=== PATIENT | female | born 1990 | race Caucasian/White ===

== ENCOUNTER 2017-11-01 21:10 | Emergency (ER) | payer OTHER ==
[2017-11-01 23:13] LABS: Urine Blood NEGATIVE (NEG); Urine Glucose NEGATIVE (NEG); Urine Protein NEGATIVE (NEG); Urine pH 7.5 (5.0-7.0)
[2017-11-01 23:21] LABS: Absolute Lymphocytes (CBC) 1.2 K/uL (0.7-4.9); Absolute Monocytes 0.5 K/uL (0.1-1.3); Absolute Neutrophil 4.9 K/uL (1.8-8.0); Basophils % 0.5 % (0-1.3); Eosinophils % 0.8 % (0-4.4); Hematocrit 33.1 % (36.0-45.0); Lymphocytes % 18.4 % (15.3-44.8); MCH 29.7 pg (27.0-35.0); MCV 86.3 fL (80-100); MPV 8.4 fL (7.6-11.3); Monocytes % 7.7 % (3.3-12.3); RBC Red Blood Cell Count 3.84 M/uL (3.86-4.86)
[2017-11-01 23:23] LABS: BUN Blood Urea Nitrogen 14 mg/dL (6-20); Bicarbonate 26 mEq/L (21-31); Glucose Level 112 mg/dL (65-120); Potassium 3.5 mEq/L (3.6-5.0); Sodium Level 132 mEq/L (135-145)
[2017-11-01 23:26] LABS: Urine Bacteria <20 /HPF (<20); Urine Culture Reflex Order NOT NEEDED; Urine RBC NONE SEEN /HPF (NONE SEEN)
[2017-11-02] MEDS ORDERED: ONDANSETRON 4 MG (ODT) TAB ONE (00:21)
--- NOTE | 2017-11-02 00:57 | EDPHYS ---
Physician Documentation [facility] Name: William Umaña Age: 27 yrs Sex: Female : 1990 Arrival Date: 11/01/2017 Time: 21:14 Bed 16 Private MD: ED Physician J Luis Birch HPI: 11/01 23:49 This 27 yrs old Female presents to ER via Ambulatory with complaints of Legs snw feel heavy, Abdominal Cramping. 23:49 Onset: The symptoms/episode began/occurred suddenly. Associated signs and symptoms: snw Pertinent positives: nausea, heavy feeling in legs . Modifying factors: The patient symptoms are alleviated by rest. not to the extent it happened today. Neurology as noted. 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 - Social history:: Smoking status: Patient uses tobacco products, denies chronic smoking, but will smoke occasionally. ROS: 23:46 Eyes: Negative for injury, pain, redness, and discharge, ENT: Negative for injury, snw pain, and discharge, Neck: Negative for injury, pain, and swelling, Cardiovascular: Negative for chest pain, palpitations, and edema, Respiratory: Negative for shortness of breath, cough, wheezing, and pleuritic chest pain. 23:46 : Negative for injury, bleeding, discharge, and swelling, Skin: Negative for injury, rash, and discoloration, Neuro: Negative for headache, weakness, numbness, tingling, and seizure. 23:46 Constitutional: Positive for body aches, malaise. 23:46 Abdomen/GI: Positive for nausea, abdominal distension. 23:46 Back: Positive for pt took Diclofenac today at 1500 for the first time. Pt states she was given this per her Neurologist for back pain, paresthesias until they get a diagnosis. 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 She then cycled 40 miles. After cycling her legs felt heavier than normal and she felt nauseated and bloated.. 23:46 MS/extremity: Positive for heaviness. Exam: 23:46 Constitutional: This is a well developed, well nourished patient who is awake, alert, snw and in no acute distress. Head/Face: Normocephalic, atraumatic. Eyes: Pupils equal round and reactive to light, extra-ocular motions intact. Lids and lashes normal. Conjunctiva and sclera are non-icteric and not injected. Cornea within normal limits. Periorbital areas with no swelling, redness, or edema. ENT: Nares patent. No nasal discharge, no septal abnormalities noted. Tympanic membranes are normal and external auditory canals are clear. Oropharynx with no redness, swelling, or masses, exudates, or evidence of obstruction, uvula midline. Mucous membranes moist. Neck: Trachea midline, no thyromegaly or masses palpated, and no cervical lymphadenopathy. Supple, full range of motion without nuchal rigidity, or vertebral point tenderness. No Meningismus. Chest/axilla: Normal chest wall appearance and motion. Nontender with no deformity. No lesions are appreciated. Cardiovascular: Regular rate and rhythm with a normal S1 and S2. No gallops, murmurs, or rubs. Normal PMI, no JVD. No pulse deficits. Respiratory: Lungs have equal breath sounds bilaterally, clear to auscultation and percussion. No rales, rhonchi or wheezes noted. No increased work of breathing, no retractions or nasal flaring. Abdomen/GI: Soft, non-tender, with normal bowel sounds. No distension or tympany. No guarding or rebound. No evidence of tenderness throughout. Back: No spinal tenderness. No costovertebral tenderness. Full range of motion. Skin: Warm, dry with normal turgor. Normal color with no rashes, no lesions, and no evidence of cellulitis. MS/ Extremity: Pulses equal, no cyanosis. Neurovascular intact. Full, normal range of motion. Neuro: Awake and alert, GCS 15, oriented to person, place, time, and situation. Cranial nerves II-XII grossly intact. Motor strength 5/5 in all extremities. Sensory grossly intact. Cerebellar exam normal. Normal gait. Vital Signs: 21:30 BP 122 / 75 RA Sitting; Pulse 78; Resp 16; Temp 98.2(TE); Pulse Ox 100% on R/A; Weight lp1 71.67 kg; Height 5 ft. 8 in. (172.72 cm); Pain 0/10; 22:38 BP 122 / 76; Pulse 70; Resp 18; Pulse Ox 100% ; cb2 11/02 00:00 BP 120 / 77; Pulse 72; Resp 16; Pulse Ox 99% on R/A; Pain 0/10; aa1 01:22 BP 121 / 74; Pulse 61; Resp 16; Pulse Ox 100% on R/A; Pain 0/10; aa1 11/01 21:30 Body Mass Index 24.02 (71.67 kg, 172.72 cm) lp1 MDM: 11/01 22:39 Patient medically screened. snw 11/02 00:58 Data reviewed: vital signs, nurses notes. Data interpreted: Pulse oximetry: on room air snw is 99 %. Interpretation: normal. Counseling: I had a detailed discussion with the patient and/or guardian regarding: the historical points, exam findings, and any diagnostic results supporting the discharge/admit diagnosis, lab results, the need for outpatient follow up, to return to the emergency department if symptoms worsen or persist or if there are any questions or concerns that arise at home. Special discussion: Based on the history and exam findings, there is no indication for further emergent testing or inpatient evaluation. I discussed with the patient/guardian the need to see the neurologist for further evaluation of the symptoms. I discussed with the patient/guardian the need to see the primary care provider for further evaluation of the symptoms. 11/01 22:38 Order name: CBC with Diff w 11/01 22:38 Order name: Chem 7 w 11/01 22:39 Order name: Urine Microscopic Only w 11/01 23:04 Order name: Urine Dipstick--Ancillary (enter results) em1 11/01 23:04 Order name: Urine --Ancillary (enter results) em1 11/01 23:13 Order name: Urine --Ancillary; Complete Time: 23:16 EDMS 11/01 22:39 Order name: Urine Test (obtain specimen); Complete Time: 22:52 snw 11/01 22:39 Order name: Urine Dipstick-Ancillary (obtain specimen); Complete Time: 22:52 snw 11/01 23:13 Order name: Urine Dipstick-Ancillary; Complete Time: 23:16 EDMS 11/01 23:23 Order name: Basic Metabolic Panel; Complete Time: :32 EDMT 11/01 23:27 Order name: Urine Microscopic Only; Complete Time: : [facility] 11/01 23:30 Order name: CBC with Automated Diff; Complete Time: : [facility] 11/01 23:42 Order name: PO challenge; Complete Time: 00:15 snw Administered Medications: 00:16 Not Given (Patient Refused): Zofran 4 mg PO once aa1 Disposition: 11/02/17 00:56 Discharged to Home. Impression: Paresthesia of skin, Dehydration. - Condition is Stable. - Discharge Instructions: Dehydration, Adult, Paresthesia, Rehydration, Adult. - Prescriptions for Zofran 4 mg Oral Tablet - take 1 tablet by ORAL route every 12 hours As needed; 20 tablet. - Work release form, Medication Reconciliation Form, Thank You Letter, Antibiotic Education, Prescription Opioid Use form. - Follow up: Private Physician; When: 1 - 2 days; Reason: Recheck today's complaints, Continuance of care, Re-evaluation by your physician. Follow up: Emergency Department; When: As needed; Reason: Worsening of condition. Addendum: 11/04/2017 07:05 Co-signature as Attending Physician, J Luis Birch MD I agree with the assessment and w a plan of care. Signatures: Dispatcher [employer] Kaila Starks, RN RN aa1 Sarah Garcia, ADVERTISING CONSULTANT-C ADVERTISING CONSULTANT-Csnw Izabella Singh RN RN lp1 J Luis Birch MD MD hi
--- NOTE | 2017-11-02 00:57 | ER ---
Nurse's Notes [facility] Name: William Umaña Age: 27 yrs Sex: Female : 1990 Arrival Date: 11/01/2017 Time: 21:14 Bed 16 Private MD: Diagnosis: Paresthesia of skin;Dehydration Presentation: 11/01 21:28 Presenting complaint: Patient states: Took a Diclofenac 50mg tablet about 1400 today lp1 prior to cycling, first time taking medication; States feeling numbness to back, legs feeling heavy; Now feeling tingling in fingers and heavy legs, lightheaded, nausea. Transition of care: patient was not received from another setting of care. Onset of symptoms was November 01, 2017 at 14:00. Care prior to arrival: None. 21:28 Method Of Arrival: Ambulatory lp1 21:28 Acuity: SOLA 4 lp1 [facility]: 21:30 LMP 11/01/2017 lp1 Historical: - Allergies: 21:30 Sulfa (Sulfonamide Antibiotics); lp1 - Home Meds: 21:30 None [Active]; lp1 - PMHx: 21:30 borederline thyroid problem; lp1 - PSHx: 21:30 None; lp1 - Immunization history:: Adult Immunizations up to date. - Social history:: Smoking status: Patient uses tobacco products, denies chronic smoking, but will smoke occasionally. Screenin:34 Abuse screen: Denies threats or abuse. Denies injuries from another. Nutritional lp1 screening: No deficits noted. Tuberculosis screening: No symptoms or risk factors identified. Fall Risk None identified. Assessment: 22:40 General: Appears in no apparent distress. comfortable, Behavior is calm, cooperative, aa1 appropriate for age. Pain: Denies pain. Neuro: Level of Consciousness is awake, alert, obeys commands, Oriented to person, place, time, situation, Moves all extremities. Full function Gait is steady, Speech is normal, Facial symmetry appears normal, Pupils are PERRLA, Reports dizziness. Cardiovascular: Denies chest pain, palpitations, shortness of breath, Heart tones S1 S2 present Rhythm is regular. Respiratory: Airway is patent Respiratory effort is even, unlabored, Respiratory pattern is regular, symmetrical. GI: Abdomen is non-distended, Bowel sounds present X 4 quads. Abd is soft and non tender X 4 quads. Reports nausea. : No signs and/or symptoms were reported regarding the genitourinary system. EENT: No signs and/or symptoms were reported regarding the EENT system. Derm: Skin is intact, is healthy with good turgor, Skin is pink, warm \T\ dry. Musculoskeletal: Circulation, motion, and sensation intact. Capillary refill < 3 seconds, Range of motion: intact in all extremities. 11/02 00:10 Reassessment: Patient appears in no apparent distress at this time. Patient is alert, aa1 oriented x 3, equal unlabored respirations, skin warm/dry/pink. Pt drinking water, will d/c if able to tolerate PO intake Patient states feeling better. 00:35 Reassessment: Pt tolerated PO fluids without vomiting. aa1 01:22 Reassessment: Patient appears in no apparent distress at this time. Patient is alert, aa1 oriented x 3, equal unlabored respirations, skin warm/dry/pink. Discussed d/c \T\ f/u instructions with pt; denies questions or concerns at this time Patient denies pain at this time. Patient states feeling better. Vital Signs: 11/01 21:30 BP 122 / 75 RA Sitting; Pulse 78; Resp 16; Temp 98.2(TE); Pulse Ox 100% on R/A; Weight lp1 71.67 kg; Height 5 ft. 8 in. (172.72 cm); Pain 0/10; 22:38 BP 122 / 76; Pulse 70; Resp 18; Pulse Ox 100% ; cb2 11/02 00:00 BP 120 / 77; Pulse 72; Resp 16; Pulse Ox 99% on R/A; Pain 0/10; aa1 01:22 BP 121 / 74; Pulse 61; Resp 16; Pulse Ox 100% on R/A; Pain 0/10; aa1 11/01 21:30 Body Mass Index 24.02 (71.67 kg, 172.72 cm) lp1 ED Course: 11/01 21:14 Patient arrived in ED. do 21:30 Triage completed. lp1 21:30 Arm band placed on. lp1 21:32 Sarah Garcia FNP-C [facility]. snw 21:32 J Luis Birch MD is Attending Physician. snw 22:40 Kaila Bermeo RN is Primary Nurse. aa1 22:40 Patient has correct armband on for positive identification. Bed in low position. Call aa1 light in reach. Pulse ox on. NIBP on. Warm blanket given. 23:07 Initial lab(s) drawn, by me, sent to lab. Inserted saline lock: 20 gauge in left cb2 antecubital area, using aseptic technique. Blood collected. 11/02 01:22 No provider procedures requiring assistance completed. IV discontinued, intact, aa1 bleeding controlled, No redness/swelling at site. Pressure dressing applied. Administered Medications: 00:16 Not Given (Patient Refused): Zofran 4 mg PO once aa1 Outcome: 00:56 Discharge ordered by . snjan 01:22 Discharged to home ambulatory. aa1 01:22 Condition: good 01:22 Discharge instructions given to patient, Instructed on discharge instructions, follow up and referral plans. medication usage, Demonstrated understanding of instructions, follow-up care, medications, Prescriptions given X 1. 01:24 Patient left the ED. aa1 Signatures: Kaila Bermeo, RN RN aa1 Sarah Garcia, PAN WASHER HAND-C PAN WASHER HAND-Csnw Izabella Singh, LITA RN lp1 Kierra Salinas [facility]
== END 2017-11-02 01:24 | disposition home or self-care (01) ==
LOC: ER 21:10
DX: E86.0 Dehydration (principal); Z72.0 Tobacco use; Z88.2 Allergy status to sulfonamides
CPT/HCPCS: 36415; 80048; 81003; 81015; 81025; 85025; 99284

== ENCOUNTER 2017-12-08 04:50 | Emergency (ER) | payer OTHER ==
--- OUTSIDE RECORDS SUMMARY | 2017-12-08 04:53 | XMS REPORT | Clinical Summary ---
:1990 Author Organization [employer] [facility] [employer] Address [address] [place] [address] Care Team Providers Name Role Phone Asked, No Pcp Primary Care Provider Unavailable Allergies Active Allergy Reactions Severity Noted Date Comments Sulfasalazine Hives 07/15/2017 Current Medications Prescription Sig. Disp. Refills Start Date End Date Status omeprazole (PriLOSEC) Take 1 capsule 14 capsule 0 11/21/2017 12/05/2017 40 MG capsule (40 mg total) by mouth daily for 14 days. Active Problems Not on file Encounters Date Type Specialty Care Team Description 11/21/2017 Emergency Emergency Medicine Francesco Garcia Epigastric pain ( Primary MD [facility]) 07/14/2017 Telephone Gastroenterology Mindy Gonzalez MA after 12/07/2016 Social History Tobacco Use Types Packs/Day Years Used Date Never Smoker Smokeless Tobacco: Never Used Sex Assigned at Date Recorded Not on file Last Filed Vital Signs Vital Sign Reading Time Taken Blood Pressure 114/60 11/21/2017 6:23 PM CDT Pulse 74 11/21/2017 6:23 PM CDT Temperature 36.8 C (98.3 F) 11/21/2017 2:39 PM CDT Respiratory Rate 16 11/21/2017 6:23 PM CDT Oxygen Saturation 100% 11/21/2017 6:23 PM CDT Inhaled Oxygen Concentration - - Weight - - Height 172.7 cm (5' 8") 11/21/2017 2:42 PM CDT Body Mass Index - - Plan of Treatment Health Maintenance Due Date Last Done Comments PAP SMEAR 2010 INFLUENZA VACCINE 03/11/2018 Results ECG 12 lead (11/21/2017 4:01 PM) Component Value Ref Range Ventricular rate 73 Atrial rate 73 ME interval 156 QRSD interval 84 QT interval 390 QTC interval 429 P axis 1 43 QRS axis 1 73 T wave axis 60 EKG impression Normal sinus rhythm-Normal ECG-No previous ECGs available- Specimen Performing Laboratory [address] [address] Lactic acid level, SEPSIS - Now and repeat 2x every 3 hours (11/21/2017 3:50 PM ) Component Value Ref Range Lactic acid 1.2 0.5 - 2.2 mmol/L Specimen Performing Laboratory Plasma specimen [facility] DEPARTMENT OF PATHOLOGY AND GENOMIC MEDICINE [address] [place] [id number] Estimated GFR (11/21/2017 3:50 PM) Component Value Ref Range GFR Non Af Amer >90 mL/min/1.73 m2 GFR Af Amer >90 mL/min/1.73 m2 Comment: Chronic kidney disease: <60 mL/min/1.73m2 Kidney failure: <15 mL/min/1.73m2 The estimated GFR is calculated from the IDMS-traceable Modification of Diet in Renal Disease Equation. The accuracy of the calculation is poor when the creatinine is normal. Calculated values >90 mL/min/1.73m2 are not reported. This equation has not been validated in children (<18 years), women, the elderly (>70 years), or ethnic groups other than Caucasians and Americans. Specimen Performing Laboratory Plasma specimen [facility] DEPARTMENT OF PATHOLOGY AND GENOMIC [address] [address] CBC with platelet and differential (11/21/2017 3:50 PM) Component Value Ref Range WBC 5.49 4.50 - 11.00 k/uL RBC 4.17 (L) 4.20 - 5.50 m/uL HGB 12.0 12.0 - 16.0 g/dL HCT 37.1 37.0 - 47.0 % MCV 89.0 82.0 - 100.0 fL MCH 28.8 27.0 - 34.0 pg MCHC 32.3 31.0 - 37.0 g/dL RDW - SD 41.0 37.0 - 55.0 fL MPV 10.0 8.8 - 13.2 fL Platelet count 371 150 - 400 k/uL Nucleated RBC 0.00 /100 WBC Neutrophils 77.5 (H) 39.0 - 69.0 % Lymphocytes 16.6 (L) 25.0 - 45.0 % Monocytes 4.9 0.0 - 10.0 % Eosinophils 0.4 0.0 - 5.0 % Basophils 0.4 0.0 - 1.0 % Immature granulocytes 0.2Comment: "Immature granulocytes" 0.0 - 1.0 % (promyelocytes, myelocytes, metamyelocytes) Specimen Performing Laboratory Blood [facility] PATHOLOGY AND [address] [address] Urine culture (11/21/2017 3:50 PM) Component Value Ref Range Urine culture SEE COMMENTComment: Bacteriuria screen negative. Specimen Performing Laboratory [facility] PATHOLOGY [address] [address] Lipase level (11/21/2017 3:50 PM) Component Value Ref Range Lipase 19 13 - 60 U/L Specimen Performing Laboratory Plasma specimen [facility] PATHOLOGY [address] [address] Amylase level (11/21/2017 3:50 PM) Component Value Ref Range Amylase 106 (H) 28 - 100 U/L Specimen Performing Laboratory Plasma specimen [facility] DEPARTMENT PATHOLOGY AND [address] [address] Comprehensive metabolic panel (11/21/2017 3:50 PM) Component Value Ref Range Sodium 142 135 - 148 mEq/L Potassium 4.6 3.5 - 5.0 mEq/L Chloride 104 98 - 112 mEq/L CO2 24 24 - 31 mEq/L Anion gap 14 7 - 15 mEq/L Comment: Starting from November , anion gap calculation no longer incorporates potassium. Please note the change. BUN 10 6 - 20 mg/dL Creatinine 0.6 0.5 - 0.9 mg/dL Glucose 97 65 - 99 mg/dL Calcium 9.5 8.3 - 10.2 mg/dL Protein 7.7 6.3 - 8.3 g/dL Comment: [place] 4.6-7.0 g/dL 1 week 4.4-7.6 g/dL 7 months-1year5.1-7.3 g/dL 1-2 years5.6-7.5 g/dL >3 years6.0-8.0 g/dL 18-150 6.3-8.3 g/dL Albumin 4.2 3.5 - 5.0 g/dL A/G ratio 1.2 0.7 - 3.8 Alkaline phosphatase 49 35 - 104 U/L AST 26 10 - 35 U/L ALT 14 5 - 50 U/L Total bilirubin 0.3 0.0 - 1.2 mg/dL Specimen Performing Laboratory Plasma specimen [facility] DEPARTMENT OF PATHOLOGY AND GENOMIC MEDICINE [address] [place] [id number] Urinalysis screen and microscopy, with reflex to culture (11/21/2017 3:45 PM) Component Value Ref Range Specimen site Clean catch Color, UA Colorless Appearance, UA Clear Specific gravity, UA 1.005 1.001 - 1.035 pH, UA 7.0 5.0 - 8.5 Protein, UA Negative Negative Glucose, UA Negative Negative Ketones, UA Negative Negative Bilirubin, UA Negative Negative Blood, UA Negative Negative Nitrite, UA Negative Negative Urobilinogen, UA <2.0 <2.0 Leukocyte esterase, UA Negative Negative WBC, UA None seen 0 - 4 /HPF RBC, UA <1 0 - 5 /HPF Bacteria, UA None seen None seen Yeast, UA None seen Yeast with pseudohyphae, UA None seen Specimen Performing Laboratory Urine [facility] DEPARTMENT OF PATHOLOGY AND GENOMIC MEDICINE [address] [place] [id number] hCG qualitative, urine screen (11/21/2017 3:45 PM) Component Value Ref Range hCG qualitative, urine NegativeComment: Sensitivity of HCG test: 25 mIU/mL Specimen Performing Laboratory Urine [facility] DEPARTMENT OF PATHOLOGY AND GENOMIC MEDICINE [address] [place] [id number] after 12/07/2016 Insurance Payer Benefit Plan / Group Subscriber ID Type Phone Address [employer] PPO OPEN CHOICE xxxxxxxxx PPO
[2017-12-08] MEDS ORDERED: NA CHLORIDE 0.9% 2,000 ML ONE (05:12)
[2017-12-08 05:42] LABS: Urine Blood TRACE (NEG); Urine Glucose NEGATIVE (NEG); Urine Protein NEGATIVE (NEG)
[2017-12-08 05:44] LABS: Absolute Lymphocytes (CBC) 1.6 K/uL (0.7-4.9); Absolute Monocytes 0.5 K/uL (0.1-1.3); Absolute Neutrophil 1.8 K/uL (1.8-8.0); Basophils % 0.9 % (0-1.3); Hematocrit 35.5 % (36.0-45.0); Lymphocytes % 40.6 % (15.3-44.8); MCH 28.5 pg (27.0-35.0); MCV 86.5 fL (80-100); MPV 9.1 fL (7.6-11.3)
[2017-12-08 05:55] LABS: Urine Bacteria <20 /HPF (<20); Urine Culture Reflex Order NOT NEEDED; Urine RBC <5 /HPF (NONE SEEN)
[2017-12-08 05:57] LABS: Bicarbonate 26 mEq/L (21-31); Glucose Level 99 mg/dL (65-120); Potassium 3.3 mEq/L (3.6-5.0); Sodium Level 138 mEq/L (135-145)
[2017-12-08 06:01] LABS: BUN Blood Urea Nitrogen 10 mg/dL (6-20); Creatine Phosphokinase 180 IU/L (22-269)
[2017-12-08] MEDS ORDERED: POTASSIUM CL SA 10 MEQ TAB PO ONE (06:20)
--- NOTE | 2017-12-08 06:31 | ER ---
Nurse's Notes [facility] Name: William Umaña Age: 27 yrs Sex: Female : 1990 Arrival Date: 12/08/2017 Time: 04:51 Bed 20 Private MD: Diagnosis: Chest pain, unspecified;Dehydration Presentation: 12/08 05:06 Presenting complaint: Patient states: she [place] yesterday and got dehydrated bb it took over 5 hours for her HR to get below 90, pt is having chest pain on the right side and felt like her pulse was fast. Transition of care: patient was not received from another setting of care. Onset of symptoms was December 08, 2017. Initial Sepsis Screen: Does the patient meet any 2 criteria? No. Patient's initial sepsis screen is negative. Does the patient have a suspected source of infection? No. Patient's initial sepsis screen is negative. Care prior to arrival: None. 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 - Social history:: Smoking status: Patient/guardian denies using tobacco, Patient uses alcohol, occasionally. Patient/guardian denies using street drugs. - Family history:: not pertinent. - Hospitalizations: : No recent hospitalization is reported. Screenin:14 Abuse screen: Denies threats or abuse. Nutritional screening: No deficits noted. ea Tuberculosis screening: No symptoms or risk factors identified. Fall Risk IV access (20 points). Assessment: 05:22 General: Appears in no apparent distress. Behavior is calm, cooperative, appropriate ea for age. Pain: Complains of pain in anterior aspect of left upper chest Pain does not radiate. Pain currently is 7 out of 10 on a pain scale. Quality of pain is described as aching, Pain began gradually. Neuro: Level of Consciousness is awake, alert, obeys commands, Oriented to person, place, time, situation. Cardiovascular: Patient's skin is warm and dry. Respiratory: Airway is patent Respiratory effort is even, unlabored, Respiratory pattern is regular, symmetrical. GI: No signs and/or symptoms were reported involving the gastrointestinal system. : No signs and/or symptoms were reported regarding the genitourinary system. EENT: No signs and/or symptoms were reported regarding the EENT system. Derm: Skin is pink, warm \T\ dry. 05:30 Reassessment: Pt taken to radiology. ea 06:23 Reassessment: Patient and/or family updated on plan of care and expected duration. Pain ea level reassessed. Patient is alert, oriented x 3, equal unlabored respirations, skin warm/dry/pink. 06:40 Reassessment: Patient and/or family updated on plan of care and expected duration. Pain ea level reassessed. Patient is alert, oriented x 3, equal unlabored respirations, skin warm/dry/pink. discharge instructions given to patient, verbalized the understanding of instruction. Awaiting on completion of IV fluids. Vital Signs: 05:09 BP 132 / 72; Pulse 101; Resp 16 S; Temp 98.7(O); Pulse Ox 100% on R/A; Weight 71.67 kg bb (R); Height 5 ft. 8 in. (172.72 cm) (R); Pain 7/10; 06:24 BP 100 / 55; Pulse 67; Resp 18; Pulse Ox 100% on R/A; ea 05:09 Body Mass Index 24.02 (71.67 kg, 172.72 cm) bb ED Course: 04:51 Patient arrived in ED. ds1 04:54 Houston Mays MD is Attending Physician. rn 04:58 Aria Rodríguez RN is Primary Nurse. ea 05:09 Triage completed. bb 05:09 Arm band placed on Patient placed in an exam room, on a stretcher, on quality assurance monitor final, bb on pulse oximetry. EKG completed in triage. Results shown to MD. Family accompanied patient. 05:13 Inserted saline lock: 20 gauge in right antecubital area, using aseptic technique. ak1 Blood collected. 05:15 Patient has correct armband on for positive identification. playground monitor on. Pulse ea ox on. NIBP on. 05:15 Patient maintains SpO2 saturation greater than 95% on room air. ea 05:34 Patient moved to radiology via wheelchair. kw 05:34 X-ray completed. Patient tolerated procedure well. kw 05:34 Patient moved back from radiology. kw 05:35 XRAY Chest Pa And Lat (2 Views) In Process Unspecified. EDMS 06:40 No provider procedures requiring assistance completed. ea 06:58 IV discontinued, intact, bleeding controlled, No redness/swelling at site. Pressure ea dressing applied. Administered Medications: 05:25 Drug: NS 0.9% 1000 ml Route: IV; Rate: 1000 ml; Site: right antecubital; ea 06:30 Follow up: Response: No adverse reaction; IV Status: Completed infusion ea 05:25 Drug: NS 0.9% 1000 ml Route: IV; Rate: 1000 ml; Site: right antecubital; ea 06:58 Follow up: Response: No adverse reaction; IV Status: Completed infusion ea 06:22 Drug: Potassium Chloride 40 mEq Route: PO; ea 06:58 Follow up: Response: No adverse reaction ea Outcome: 06:31 Discharge ordered by MD. rn 06:49 Discharge instructions given to patient, Instructed on discharge instructions, follow ea up and referral plans. Demonstrated understanding of instructions, follow-up care. 07:00 Discharged to home ambulatory, with family. ea 07:00 Condition: improved 07:14 Patient left the ED. ea Signatures: Dispatcher [employer] EDOR Womack, Chyna ds1 Mona Beasley RN RN bb Nieto, Roman, MD MD rn Whitley, Kimberlee kw Krenek, Amber, RN RN ak1 Aria Rodríguez RN RN ea Corrections: (The following items were deleted from the chart) 06:50 06:40 Reassessment: Patient and/or family updated on plan of care and expected ea duration. Pain level reassessed. Patient is alert, oriented x 3, equal unlabored respirations, skin warm/dry/pink. discharge instructions given to patient, verbalized the understanding of instruction. ea
--- NOTE | 2017-12-08 06:32 | EDPHYS ---
Physician Documentation [facility] Name: William Umaña Age: 27 yrs Sex: Female : 1990 Arrival Date: 12/08/2017 Time: 04:51 Bed 20 Private MD: ED Physician Houston Mays HPI: 12/08 05:17 This 27 yrs old Female presents to ER via Ambulatory with complaints of Chest rn Pain. 05:17 The patient or guardian reports chest pain that is located primarily in the anterior rn chest wall, right. The pain does not radiate. Associated signs and symptoms: Pertinent positives: palpitations. The chest pain is described as a heaviness. Duration: The patient or guardian reports multiple episodes, that are intermittent. Severity of pain: At its worst the pain was mild in the emergency department the pain is unchanged. The patient has not experienced similar symptoms in the past. Reports [place] that [place] yesterday, reports got dehydrated, HR went into 150s, went home and "crashed", feels better but feels palpitations, didn't drink too much water since race, feels generalized fatigue and muscle cramps. + right sided chest pain that feels heavy, non-radiating, no sob/cough, used to smoke, no trauma, worse with deep breath and palpation.. 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 - Social history:: Smoking status: Patient/guardian denies using tobacco, Patient uses alcohol, occasionally. Patient/guardian denies using street drugs. - Family history:: not pertinent. - Hospitalizations: : No recent hospitalization is reported. ROS: 05:17 Constitutional: Negative for fever, chills, and weight loss, Eyes: Negative for injury, rn pain, redness, and discharge, Neck: Negative for injury, pain, and swelling, Cardiovascular: Negative for edema Respiratory: Negative for shortness of breath, cough, wheezing Abdomen/GI: Negative for abdominal pain, nausea, vomiting, diarrhea, and constipation, Back: Negative for injury and pain, MS/Extremity: Negative for injury and deformity, Skin: Negative for injury, rash, and discoloration, Neuro: Negative for headache, seizure. Exam: 05:17 Constitutional: This is a well developed, well nourished patient who is awake, alert, rn and in no acute distress. Head/Face: Normocephalic, atraumatic. Eyes: Pupils equal round and reactive to light, extra-ocular motions intact. Lids and lashes normal. Conjunctiva and sclera are non-icteric and not injected. Cornea within normal limits. Periorbital areas with no swelling, redness, or edema. Neck: Trachea midline, no thyromegaly or masses palpated, and no cervical lymphadenopathy. Supple, full range of motion without nuchal rigidity, or vertebral point tenderness. No Meningismus. Chest/axilla: + reproducible right anterior chest wall tenderness with urticaria over chest wall Cardiovascular: Regular rate and rhythm with a normal S1 and S2. No gallops, murmurs, or rubs. Normal PMI, no JVD. No pulse deficits. Respiratory: Lungs have equal breath sounds bilaterally, clear to auscultation and percussion. No rales, rhonchi or wheezes noted. No increased work of breathing, no retractions or nasal flaring. Abdomen/GI: Soft, non-tender, with normal bowel sounds. No distension or tympany. No guarding or rebound. No evidence of tenderness throughout. Skin: Warm, dry, no evidence of cellulitis. MS/ Extremity: Pulses equal, no cyanosis. Neurovascular intact. Full, normal range of motion. Equal circumference. Neuro: Awake and alert, GCS 15, oriented to person, place, time, and situation. Cranial nerves II-XII grossly intact. Motor strength 5/5 in all extremities. Sensory grossly intact. Cerebellar exam normal. Normal gait. 05:27 ECG was reviewed by the Attending Physician. rn Vital Signs: 05:09 BP 132 / 72; Pulse 101; Resp 16 S; Temp 98.7(O); Pulse Ox 100% on R/A; Weight 71.67 kg bb (R); Height 5 ft. 8 in. (172.72 cm) (R); Pain 7/10; 06:24 BP 100 / 55; Pulse 67; Resp 18; Pulse Ox 100% on R/A; ea 05:09 Body Mass Index 24.02 (71.67 kg, 172.72 cm) bb MDM: 04:54 Patient medically screened. rn 06:30 Differential diagnosis: anxiety, chest wall pain, costochondritis, pleurisy, rn pneumothorax, pulmonary embolus. Data reviewed: vital signs, nurses notes, lab test result(s), EKG, radiologic studies, plain films, and as a result, I will discharge patient. Counseling: I had a detailed discussion with the patient and/or guardian regarding: the historical points, exam findings, and any diagnostic results supporting the discharge/admit diagnosis, lab results, radiology results, the need for outpatient follow up, to return to the emergency department if symptoms worsen or persist or if there are any questions or concerns that arise at home. Response to treatment: the patient's symptoms have markedly improved after treatment, patient is well hydrated. and as a result, I will discharge patient. Special discussion: I discussed with the patient/guardian in detail that at this point there is no indication for admission to the hospital. It is understood, however, that if the symptoms persist or worsen the patient needs to return immediately for re-evaluation. 12/08 05:07 Order name: CBC with Diff rn 12/08 05:07 Order name: Basic Metabolic Panel rn 12/08 05:07 Order name: Urine Microscopic Only; Complete Time: 06:02 rn 12/08 05:07 Order name: Troponin (emerg Dept Use Only); Complete Time: 06:14 rn 12/08 05:07 Order name: TSH rn 12/08 05:07 Order name: T4 Free rn 12/08 05:08 Order name: CBC with Automated Diff; Complete Time: 06:02 EDMS 12/08 05:08 Order name: XRAY Chest Pa And Lat (2 Views) rn 12/08 05:08 Order name: D-Dimer; Complete Time: 06:02 rn 12/08 05:30 Order name: Urine Dipstick--Ancillary (enter results); Complete Time: 05:48 rg2 12/08 05:30 Order name: Urine --Ancillary (enter results); Complete Time: 05:48 rg2 12/08 05:31 Order name: Creatine Phosphokinase EDMS 12/08 05:07 Order name: IV Start; Complete Time: 05:14 rn 12/08 05:07 Order name: Urine Test (obtain specimen); Complete Time: 05:25 rn 12/08 05:07 Order name: Urine Dipstick-Ancillary (obtain specimen); Complete Time: 05: rn 12/08 05:07 Order name: EKG; Complete Time: 05:08 rn 12/08 05:07 Order name: EKG - Nurse/Tech; Complete Time: 05:16 rn EC:27 Rate is 89 beats/min. Rhythm is regular. QRS [place] is Normal. ND interval is normal. QRS rn interval is normal. QT interval is normal. No Q waves. T waves are Normal. No ST changes noted. Clinical impression: Normal ECG. Interpreted by me. Administered Medications: 05:25 Drug: NS 0.9% 1000 ml Route: IV; Rate: 1000 ml; Site: right antecubital; ea 06:30 Follow up: Response: No adverse reaction; IV Status: Completed infusion ea 05:25 Drug: NS 0.9% 1000 ml Route: IV; Rate: 1000 ml; Site: right antecubital; ea 06:58 Follow up: Response: No adverse reaction; IV Status: Completed infusion ea 06:22 Drug: Potassium Chloride 40 mEq Route: PO; ea 06:58 Follow up: Response: No adverse reaction ea Disposition: 12/08/17 06:31 Discharged to Home. Impression: Chest pain, unspecified, Dehydration. - Condition is Stable. - Discharge Instructions: Nonspecific Chest Pain, Chest Wall Pain, Dehydration, Adult, Pain Without a Known Cause. - Medication Reconciliation Form, Thank You Letter, Antibiotic Education, Prescription Opioid Use form. - Follow up: Private Physician; When: As needed; Reason: Recheck today's complaints, Re-evaluation by your physician. - Problem is new. - Symptoms have improved. Signatures: Dispatcher [employer] EDMS Mona Beasley RN RN bb Nieto, Roman, MD MD rn Antunez, Elena, RN RN ea Corrections: (The following items were deleted from the chart) 05:31 05:15 CREATINE PHOSPHOKINASE+[id number].BRZ ordered. EDMS EDMS
[2017-12-08 06:36] LABS: Thyroid Stimulating Hormone 3.42 uIU/mL (0.34-5.60)
--- NOTE | 2017-12-08 07:14 | EKG ---
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
--- NOTE | 2017-12-08 09:32 | RAD REPORT ---
EXAM DESCRIPTION: RAD - Chest Pa And Lat (2 Views) - 12/08/2017 5:37 am CLINICAL HISTORY: Chest pain COMPARISON: March 2017 TECHNIQUE: PA and lateral views of the chest were obtained. FINDINGS: The lungs are clear. Lung markings are similar to comparison. Trachea is midline. Heart s ize is normal and central vasculature is within normal limits. No pleural effusion or pneumothorax s een. No acute bony finding noted. No aortic abnormality. IMPRESSION: No acute cardiopulmonary process.
== END 2017-12-08 07:14 | disposition home or self-care (01) ==
LOC: ER 04:50
DX: R07.9 Chest pain, unspecified (principal); E86.0 Dehydration; Z88.2 Allergy status to sulfonamides
CPT/HCPCS: 36415; 71046; 80048; 81003; 81015; 81025; 82550; 84439; 84443; 84484; 85025; 85379; 93005; 96360; 96361; 99285; J7030

== ENCOUNTER 2018-10-30 22:08 | Emergency (ER) | payer OTHER ==
--- OUTSIDE RECORDS SUMMARY | 2018-10-30 22:11 | XMS REPORT | Clinical Summary ---
:1990 Author Organization [facility] Address [address] [place] [address] Care Team Providers Name Role Phone Asked, No Pcp Primary Care Provider Unavailable Allergies Active Allergy Reactions Severity Noted Date Comments Sulfasalazine Hives 07/15/2017 Medications Medication Sig Dispensed Refills Start Date End Date Status omeprazole Take 1 capsule 14 capsule 0 11/21/2017 12/05/2017 (PriLOSEC) 40 MG (40 mg total) by capsule mouth daily for 14 days. Active Problems Not on file Encounters Date Type Specialty Care Team Description 11/21/2017 Emergency Emergency Medicine Francesco Garcia Epigastric pain ( Primary MD Lion Dx) after 10/29/2017 Social History Tobacco Use Types Packs/Day Years Used Date Never Smoker Smokeless Tobacco: Never Used Sex Assigned at Date Recorded Not on file Job Start Date Occupation Industry Not on file Not on file Not on file Travel History Travel Start Travel End No recent travel history available. Last Filed Vital Signs Vital Sign Reading [...] Health Maintenance Due Date Last Done Comments CERVICAL CANCER SCREENING 2010 INFLUENZA VACCINE 03/11/2018 Procedures Procedure Name Priority Date/Time Associated Comments Diagnosis ECG 12-LEAD STAT 11/21/2017 4:01 Results for this PM CDT procedure are in the results section. ZZESTIMATED GFR STAT 11/21/2017 3:50 Results for this PM CDT procedure are in the results section. LIPASE LEVEL STAT 11/21/2017 3:50 Results for this PM CDT procedure are in the results section. AMYLASE LEVEL STAT 11/21/2017 3:50 Results for this PM CDT procedure are in the results section. LACTIC ACID LEVEL, STAT 11/21/2017 3:50 Results for this SEPSIS - NOW AND PM CDT procedure are in REPEAT 2X EVERY 3 the results HOURS section. COMPREHENSIVE STAT 11/21/2017 3:50 Results for this METABOLIC PANEL PM CDT procedure are in the results section. HC COMPLETE BLD COUNT STAT 11/21/2017 3:50 Results for this W/AUTO DIFF PM CDT procedure are in the results section. URINE CULTURE STAT 11/21/2017 3:50 Results for this PM CDT procedure are in the results section. HCG QUALITATIVE, URINE STAT 11/21/2017 3:45 Results for this SCREEN PM CDT procedure are in the results section. URINALYSIS SCREEN AND STAT 11/21/2017 3:45 Results for this MICROSCOPY, WITH PM CDT procedure are in REFLEX TO CULTURE the results section. after 10/29/2017 Results ECG 12 lead (11/21/2017 4:01 PM CDT) Ventricular rate 73 [facility] Atrial rate 73 [facility] GA interval 156 [facility] QRSD interval 84 [facility] QT interval 390 [facility] QTC interval 429 [facility] P axis 1 43 [facility] QRS axis 1 73 [facility] T wave axis 60 [facility] EKG impression Normal sinus rhythm-Normal ECG-No previous [facility] MUSE ECGs available- Performing Organization Address City/[facility] Phone Number [facility] MUSE [address] [place] [address] Lactic acid level, SEPSIS - Now and repeat 2x every 3 hours (11/21/2017 3:50 PM CDT) Lactic acid 1.2 0.5 - 2.2 mmol/L [facility] DEPARTMENT OF PATHOLOGY AND GENOMIC MEDICINE Specimen Plasma specimen Performing Organization Address City/[facility] Phone Number [facility] DEPARTMENT OF PATHOLOGY AND [address] [place] [address] GENOMIC MEDICINE Estimated GFR (11/21/2017 3:50 PM CDT) GFR Non Af Amer >90 mL/min/1.73 m2 [facility] DEPARTMENT OF PATHOLOGY AND GENOMIC MEDICINE GFR Af Amer >90 mL/min/1.73 m2 [facility] DEPARTMENT OF Comment: PATHOLOGY AND GENOMIC Chronic kidney disease: <60 mL/min/1.73m2 MEDICINE Kidney failure: <15 mL/min/1.73m2 The estimated GFR is calculated from the IDMS-traceable Modification of Diet in Renal Disease Equation. The accuracy of the calculation is poor when the creatinine is normal. Calculated values >90 mL/min/1.73m2 are not reported. This equation has not been validated in children (<18 years), women, the elderly (>70 years), or ethnic groups other than Caucasians and Americans. Specimen Plasma specimen Performing Organization Address City/State/Zipcode Phone Number [facility] DEPARTMENT OF PATHOLOGY AND [address] [place] [address] [facility] CBC with platelet and differential (11/21/2017 3:50 PM CDT) WBC 5.49 4.50 - 11.00 k/uL [facility] DEPARTMENT OF PATHOLOGY AND GENOMIC MEDICINE RBC 4.17 (L) 4.20 - 5.50 m/uL [facility] DEPARTMENT OF PATHOLOGY AND GENOMIC MEDICINE HGB 12.0 12.0 - 16.0 g/dL [facility] DEPARTMENT OF PATHOLOGY AND GENOMIC MEDICINE HCT 37.1 37.0 - 47.0 % [facility] DEPARTMENT OF PATHOLOGY AND GENOMIC MEDICINE MCV 89.0 82.0 - 100.0 fL [facility] DEPARTMENT OF PATHOLOGY AND GENOMIC MEDICINE MCH 28.8 27.0 - 34.0 pg [facility] DEPARTMENT OF PATHOLOGY AND GENOMIC MEDICINE MCHC 32.3 31.0 - 37.0 g/dL [facility] DEPARTMENT OF PATHOLOGY AND GENOMIC MEDICINE RDW - SD 41.0 37.0 - 55.0 fL [facility] DEPARTMENT OF PATHOLOGY AND GENOMIC MEDICINE MPV 10.0 8.8 - 13.2 fL [facility] DEPARTMENT OF PATHOLOGY AND GENOMIC MEDICINE Platelet count 371 150 - 400 k/uL [facility] DEPARTMENT OF PATHOLOGY AND GENOMIC MEDICINE Nucleated RBC 0.00 /100 WBC [facility] DEPARTMENT OF PATHOLOGY AND GENOMIC MEDICINE Neutrophils 77.5 (H) 39.0 - 69.0 % [facility] DEPARTMENT OF PATHOLOGY AND GENOMIC MEDICINE Lymphocytes 16.6 (L) 25.0 - 45.0 % [facility] DEPARTMENT OF PATHOLOGY AND GENOMIC MEDICINE Monocytes 4.9 0.0 - 10.0 % [facility] DEPARTMENT OF PATHOLOGY AND GENOMIC MEDICINE Eosinophils 0.4 0.0 - 5.0 % [facility] DEPARTMENT OF PATHOLOGY AND GENOMIC MEDICINE Basophils 0.4 0.0 - 1.0 % [facility] DEPARTMENT OF PATHOLOGY AND GENOMIC MEDICINE Immature granulocytes 0.2Comment: 0.0 - 1.0 % [facility] DEPARTMENT OF "Immature PATHOLOGY AND GENOMIC granulocytes" MEDICINE (promyelocytes, myelocytes, metamyelocytes) Specimen Blood Performing Organization Address City/[facility] Phone Number [facility] DEPARTMENT OF PATHOLOGY AND [address] [place] [address] GENOMIC MEDICINE Urine culture (11/21/2017 3:50 PM CDT) Urine culture SEE COMMENTComment: Bacteriuria [facility] DEPARTMENT OF PATHOLOGY screen negative. AND GENOMIC MEDICINE Performing Organization Address [facility] Phone Number [facility] DEPARTMENT OF PATHOLOGY AND [address] [place] [address] GENOMIC MEDICINE Lipase level (11/21/2017 3:50 PM CDT) Lipase 19 13 - 60 U/L [facility] DEPARTMENT OF PATHOLOGY AND GENOMIC MEDICINE Specimen Plasma specimen Performing Organization Address [facility] Phone Number [facility] DEPARTMENT OF PATHOLOGY AND [address] [place] [address] Amylase level (11/21/2017 3:50 PM CDT) Amylase 106 (H) 28 - 100 U/L [facility] DEPARTMENT OF PATHOLOGY AND GENOMIC MEDICINE Specimen Plasma specimen Performing Organization Address [facility] Phone Number [facility] DEPARTMENT OF PATHOLOGY AND [address] [place] [address] Comprehensive metabolic panel (11/21/2017 3:50 PM CDT) Sodium 142 135 - 148 mEq/L [facility] DEPARTMENT OF PATHOLOGY AND GENOMIC MEDICINE Potassium 4.6 3.5 - 5.0 mEq/L [facility] DEPARTMENT OF PATHOLOGY AND GENOMIC MEDICINE Chloride 104 98 - 112 mEq/L [facility] DEPARTMENT OF PATHOLOGY AND GENOMIC MEDICINE CO2 24 24 - 31 mEq/L [facility] DEPARTMENT OF PATHOLOGY AND GENOMIC MEDICINE Anion gap 14 7 - 15 mEq/L [facility] DEPARTMENT OF Comment: PATHOLOGY AND GENOMIC Starting from November , anion gap calculation MEDICINE no longer incorporates potassium. Please note the change. BUN 10 6 - 20 mg/dL [facility] DEPARTMENT OF PATHOLOGY AND GENOMIC MEDICINE Creatinine 0.6 0.5 - 0.9 mg/dL [facility] DEPARTMENT OF PATHOLOGY AND GENOMIC MEDICINE Glucose 97 65 - 99 mg/dL [facility] DEPARTMENT OF PATHOLOGY AND GENOMIC MEDICINE Calcium 9.5 8.3 - 10.2 mg/dL [facility] DEPARTMENT OF PATHOLOGY AND GENOMIC MEDICINE Protein 7.7 6.3 - 8.3 g/dL [facility] DEPARTMENT OF Comment: PATHOLOGY AND GENOMIC [place] 4.6-7.0 g/dL MEDICINE 1 week 4.4-7.6 g/dL 7 months-1year5.1-7.3 g/dL 1-2 years5.6-7.5 g/dL >3 years6.0-8.0 g/dL 18-150 6.3-8.3 g/dL Albumin 4.2 3.5 - 5.0 g/dL [facility] DEPARTMENT OF PATHOLOGY AND GENOMIC MEDICINE A/G ratio 1.2 0.7 - 3.8 [facility] DEPARTMENT OF PATHOLOGY AND GENOMIC MEDICINE Alkaline phosphatase 49 35 - 104 U/L [facility] DEPARTMENT OF PATHOLOGY AND GENOMIC MEDICINE AST 26 10 - 35 U/L [facility] DEPARTMENT OF PATHOLOGY AND GENOMIC MEDICINE ALT 14 5 - 50 U/L [facility] DEPARTMENT OF PATHOLOGY AND GENOMIC MEDICINE Total bilirubin 0.3 0.0 - 1.2 mg/dL [facility] DEPARTMENT OF PATHOLOGY AND GENOMIC MEDICINE Specimen Plasma specimen Performing Organization Address City/State/[facility] Phone Number [facility] DEPARTMENT OF PATHOLOGY AND [address] [place] [id number] [facility] Urinalysis screen and microscopy, with reflex to culture (11/21/2017 3:45 PM CDT) Specimen site Clean catch [facility] DEPARTMENT OF PATHOLOGY AND GENOMIC MEDICINE Color, UA Colorless [facility] DEPARTMENT OF PATHOLOGY AND GENOMIC MEDICINE Appearance, UA Clear [facility] DEPARTMENT OF PATHOLOGY AND GENOMIC MEDICINE Specific gravity, UA 1.005 1.001 - 1.035 [facility] DEPARTMENT OF PATHOLOGY AND GENOMIC MEDICINE pH, UA 7.0 5.0 - 8.5 [facility] DEPARTMENT OF PATHOLOGY AND GENOMIC MEDICINE Protein, UA Negative Negative [facility] DEPARTMENT OF PATHOLOGY AND GENOMIC MEDICINE Glucose, UA Negative Negative [facility] DEPARTMENT OF PATHOLOGY AND GENOMIC MEDICINE Ketones, UA Negative Negative [facility] DEPARTMENT OF PATHOLOGY AND GENOMIC MEDICINE Bilirubin, UA Negative Negative [facility] DEPARTMENT OF PATHOLOGY AND GENOMIC MEDICINE Blood, UA Negative Negative [facility] DEPARTMENT OF PATHOLOGY AND GENOMIC MEDICINE Nitrite, UA Negative Negative [facility] DEPARTMENT OF PATHOLOGY AND GENOMIC MEDICINE Urobilinogen, UA <2.0 <2.0 [facility] DEPARTMENT OF PATHOLOGY AND GENOMIC MEDICINE Leukocyte esterase, UA Negative Negative [facility] DEPARTMENT OF PATHOLOGY AND GENOMIC MEDICINE WBC, UA None seen 0 - 4 /HPF [facility] DEPARTMENT OF PATHOLOGY AND GENOMIC MEDICINE RBC, UA <1 0 - 5 /HPF [facility] DEPARTMENT OF PATHOLOGY AND GENOMIC MEDICINE Bacteria, UA None seen None seen [facility] DEPARTMENT OF PATHOLOGY AND GENOMIC MEDICINE Yeast, UA None seen [facility] DEPARTMENT OF PATHOLOGY AND GENOMIC MEDICINE Yeast with pseudohyphae, UA None seen [facility] DEPARTMENT OF PATHOLOGY AND GENOMIC MEDICINE Specimen Urine Performing Organization Address City/State/[facility] Phone Number [facility] DEPARTMENT OF PATHOLOGY AND [address] [place] [address] [facility] MEDICINE hCG qualitative, urine screen (11/21/2017 3:45 PM CDT) hCG qualitative, urine NegativeComment: [facility] DEPARTMENT OF Sensitivity of HCG test: 25 PATHOLOGY AND GENOMIC mIU/mL MEDICINE Specimen Urine Performing Organization Address City/[facility] Phone Number [facility] DEPARTMENT OF PATHOLOGY AND [address] [place] [address] GENOMIC MEDICINE after 10/29/2017 Insurance Payer Benefit Plan / Group Subscriber ID Type Phone Address AETNA AETNA PPO OPEN CHOICE xxxxxxxxx PPO Advance Directives Patient has advance care planning documents on file. For more information, please contact:Omar Izquierdo[address] [place] [phone]
--- OUTSIDE RECORDS SUMMARY | 2018-10-30 22:11 | XMS REPORT | Clinical Summary ---
:1990 Author Organization [facility] Address [address] [place] [address] Care Team Providers Name Role Phone Pcp, No Primary Care Provider Unavailable Allergies Active Allergy Reactions Severity Noted Date Comments Sulfa (Sulfonamide Antibiotics) 03/12/2018 Medications Medication Sig Dispensed Refills Start Date End Date Status esomeprazole (NEXIUM) Take 40 mg by mouth 0 Active 40 MG capsule daily. aloe vera (ALOE Take by mouth. 0 Active NUTRITIONAL ORAL) cholecalciferol Take 1,000 Units by 0 Active (VITAMIN D3) 1,000 mouth daily. unit tablet TURMERIC, BULK, MISC by Miscellaneous 0 Active route. Active Problems Not on file Encounters Date Type Specialty Care Team Description 04/24/2018 Anesthesia Event Olivia Pelletier MD 04/24/2018 Surgery Aric Hope, COLONOSCOPY,BIOPSY 04/24/2018 Hospital Encounter Aric Hope MD 03/13/2018 Hospital Encounter Jie Denise MD after 10/29/2017 Social History Tobacco Use Types Packs/Day Years Used Date Former Smoker Quit: 01/09/2018 Smokeless Tobacco: Never Used Comments: Only smoked cigars socially Alcohol Use Drinks/Week oz/Week Comments Yes 1-2 Glasses of wine 1.2 - 2.4 1-2 Shots of liquor Sex Assigned at Date Recorded Not on file Job Start Date Occupation Industry Not on file Not on file Not on file Travel History Travel Start Travel End No recent travel history available. Last Filed Vital Signs Vital Sign Reading Time Taken Blood Pressure 100/59 04/24/2018 3:25 PM CDT Pulse 66 04/24/2018 3:25 PM CDT Temperature 36.3 C (97.4 F) 04/24/2018 2:55 PM CDT Respiratory Rate 16 04/24/2018 3:25 PM CDT Oxygen Saturation 100% 04/24/2018 3:25 PM CDT Inhaled Oxygen Concentration - - Weight 68.6 kg (151 lb 3.2 oz) 04/24/2018 1:00 PM CDT Height 172.7 cm (5' 8") 04/24/2018 1:00 PM CDT Body Mass Index 22.99 04/24/2018 1:00 PM CDT Plan of Treatment Not on file Procedures Procedure Name Priority Date/Time Associated Diagnosis Comments REPORT OF 04/24/2018 3:05 PROCEDURE - PM CDT ENDOSCOPY URL REPORT OF 04/24/2018 3:02 PROCEDURE - PM CDT ENDOSCOPY URL TISSUE EXAM AP Routine 04/24/2018 2:32 Results for this PM CDT procedure are in the results section. UPPER 04/24/2018 1:30 Diarrhea, ENDOSCOPY,BIOPSY PM CDT unspecified type Abdominal bloating Gastroesophageal reflux disease, esophagitis presence not specified Epigastric pain Upper abdominal pain Dyspepsia Nausea COLONOSCOPY,BIOPSY 04/24/2018 1:30 Diarrhea, PM CDT unspecified type Abdominal bloating Gastroesophageal reflux disease, esophagitis presence not specified Epigastric pain Upper abdominal pain Dyspepsia Nausea POCT , Routine 04/24/2018 1:29 Results for this URINE PM CDT procedure are in the results section. after 10/29/2017 Results REPORT OF PROCEDURE - ENDOSCOPY URL (04/24/2018 3:05 PM CDT) Narrative Performed At REPORT OF PROCEDURE - ENDOSCOPY URL (04/24/2018 3:02 PM CDT) Narrative Performed At Tissue Exam (04/24/2018 2:32 PM CDT) Case Report Surgical Pathology Report Case: [id number] [facility] Authorizing Provider:Aric Hope, Collected: 04/24/2018 1432 [facility] Received: 04/24/2018 1618 SERVICES Pathologist: Elly Alcazar MD Specimens: A) - Duodenum, bx B) - Biopsy, Gastric, bx C) - Large Intestine, Colon - Right/Ascending, bx r/o microscopic colitis D) - Large Intestine, Colon - Left/Descending, bx r/o microscopic colitis DIAGNOSIS A. DUODENUM, BIOPSY: [facility] - NO DIAGNOSTIC ALTERATION [facility] B. STOMACH, BIOPSIES: - CHRONIC INACTIVE GASTRITIS C. RIGHT/ASCENDING COLON, BIOPSIES: - NO DIAGNOSTIC ALTERATION D. LEFT/DESCENDING COLON, BIOPSIES: - MILDLY INCREASED LAMINA PROPRIA CHRONIC INFLAMMATION Signing Pathologist Direct Phone Line: [phone] COMMENT The endoscopy report is reviewed in conjunction with the case. [facility] The slides from specimens C, right colon, and D, left colon were shown in consultation to Dr. Anisa Weir who agrees with the diagnosis. CPT Code(s) LC/ew [facility] 35807 x4. [id number] [facility] CLINICAL HISTORY Diarrhea, abdominal [facility] bloating, GERD, epigastric [facility] pain, upper abdominal pain, dyspepsia, nausea, rule out microscopic colitis SPECIMEN SOURCE A. Duodenum biopsy; B. [facility] Gastric biopsy; C. [facility] Right/ascending colon biopsy; D. Left/descending colon biopsy GROSS DESCRIPTION Specimen A: Received in formalin labeled "duodenum" are five fragments measuring 0.7 x 0.6 x 0.1 cm in aggregate. Entirely submitted A1. [facility] Specimen B: Received in formalin labeled "biopsy, gastric" are four fragments measuring 0.8 x 0.6 x 0.1 cm in aggregate. Entirely submitted B1. Specimen C: Received in formalin labeled "large intestine, colon right/ ascending" are four fragments measuring 0.8 x 0.6 x 0.1 cm in aggregate. Entirely submitted C1. Specimen D: Received in formalin labeled "large intestine, colon left/ descending" are four fragments measuring 1.0 x 0.6 x 0.1 cm in aggregate. Entirely submitted D1. CG/pl MICROSCOPIC DESCRIPTION A. Sections of the duodenal biopsy show small bowel mucosa with long slender villi and a normal scattering of chronic inflammation in the lamina propria. There is no significant acute inflammation, and [facility] there are no infectious organisms, granulomas, dysplasia or malignancy. [facility] B. Sections of the gastric biopsy show gastric oxyntic and antral type mucosa. The antral mucosa shows increased chronic inflammation in the lamina propria including lymphocytes and plasma cells. There is no significant acute inflammation, and there is no intestinal metaplasia, dysplasia or malignancy. Warthin Starry stain for Helicobacter pylori is negative. C. Sections of the right/ascending colon show colonic mucosa with evenly spaced glands that reach the muscularis and a rare lymphoid aggregate. There is no significant acute inflammation, and there are no granulomas, infectious organisms, ulcerations, dysplasia or malignancy. D. Sections of the left/descending colon show colonic mucosa with evenly spaced glands. There are mildly increased lymphocytes in the lamina propria. There are no granulomas, infectious organisms, ulce rations, dysplasia or malignancy. There are no diagnostic features of microscopic colitis. SPECIAL STUDIES The following special studies were performed on this case and the interpretation is incorporated in the diagnostic report above: [facility] B. Mane Dorsey- negative for Helicobacter pylori. [facility] Specimen Tissue - Duodenum Performing Organization Address City/State/Zipcode Phone Number [facility] [address] [place], [place] [id number] CENTER POCT , urine (04/24/2018 1:29 PM CDT) Test Urine, POC Negative Control line present?, POC Yes Background clear?, POC Yes UPT Cassette Lot #, POC [id number] UPT Cassette Expiration Date, POC 09/10/2019 Specimen Urine after 10/29/2017 Insurance Payer Benefit Plan / Group Subscriber ID Type Phone Address AETNA - MGD CARE AETNA HMO POS QPOS xxxxxxxxx HMO/POS (Home) [facility] [phone] [facility] [address] (Work) [place] [address]
--- OUTSIDE RECORDS SUMMARY | 2018-10-30 22:11 | XMS REPORT ---
:1990 [facility] Address [address] [place] [address] Dr. Wh[address] [place] [id number] Care Team Providers Name Role Phone ARIC HOPE Unavailable Unavailable Problems This patient has no known problems. Allergies, Adverse Reactions, Alerts This patient has no known allergies or adverse reactions. Medications This patient has no known medications. Results Test Description Test Time Test Comments Text Results Atomic Results Result Comments TISSUE EXAM 2018-04-28 15:55:00 Surgical Pathology Report Case: [id number] Authorizing Provider: Aric Hope, Collected: 04/24/2018 [facility]lices BABB Ordering Location: [facility] Received: 04/24/2018 1618 SERVICES Pathologist: Elly Alcazar MD Specimens: A) - Duodenum, bx B) - Biopsy, Gastric, bx C) - Large Intestine, Colon - Right/Ascending, bx r/o microscopic colitis D) - Large Intestine, Colon - Left/Descending, bx r/o microscopic colitis A. DUODENUM, BIOPSY: - NO DIAGNOSTIC ALTERATION B. STOMACH, BIOPSIES: - CHRONIC INACTIVE GASTRITISC. RIGHT/ASCENDING COLON, BIOPSIES: - NO DIAGNOSTIC ALTERATION D. LEFT/DESCENDING COLON, BIOPSIES: - MILDLY INCREASED LAMINA PROPRIA CHRONIC INFLAMMATION Signing Pathologist Direct Phone Line: [phone] signed by Elly Alcazar MD on 04/28/2018 at 3:55 PMThe endoscopy report is reviewed in conjunction with the case.The slides from specimens C, right colon, and D, left colon were shown in consultation to Dr. Anisa Weir who agrees with the diagnosis./[id number]. [id number], abdominal bloating, GERD, epigastric pain, upper abdominal pain, dyspepsia, nausea, rule out microscopic colitis A. Duodenum biopsy; B. Gastric biopsy; C. Right/ascending colon biopsy; D. Left/descending colon biopsySpecimen A: Received in formalin labeled "duodenum" are five fragments measuring 0.7 x 0.6 x 0.1 cm in aggregate. Entirely submitted A1. Specimen B: Received in formalin labeled "biopsy, gastric" are four fragments measuring 0.8 x 0.6 x 0.1 cm in aggregate. Entirely submitted B1.Specimen C: Received in formalin labeled "large intestine, colon right/ascending" are four fragments measuring 0.8 x 0.6 x 0.1 cm in aggregate. Entirely submitted C1. Specimen D: Received in formalin labeled "large intestine, colon left/descending" are four fragments measuring 1.0 x 0.6 x 0.1 cm in aggregate. Entirely submitted D1. CG/pl A. Sections of the duodenal biopsy show small bowel mucosa with long slender villi and a normal scattering of chronic inflammation in the lamina propria. There is no significant acute inflammation, and there are no infectious organisms, granulomas, dysplasia or malignancy.B. Sections of the gastric biopsy show gastric oxyntic and antral type mucosa. The antral mucosa shows increased chronic inflammation in the lamina propria including lymphocytes and plasma cells. There is no significant acute inflammation, and there is no intestinal metaplasia, dysplasia or malignancy. Warthin Starry stain for Helicobacter pylori is negative.C. Sections of the right/ascending colon show colonic mucosa with evenly spaced glands that reach the muscularis and a rare lymphoid aggregate. There is no significant acute inflammation, and there are no granulomas, infectious organisms, ulcerations, dysplasia or malignancy.D. Sections of the left/descending colon show colonic mucosa with evenly spaced glands. There are mildly increased lymphocytes in the lamina propria. There are no granulomas, infectious organisms, ulcerations, dysplasia or malignancy. There are no diagnostic features of microscopic colitis.The following special studies were performed on this case and the interpretation is incorporated in the diagnostic report above:B. Warthin Starry- negative for Helicobacter pylori.
[2018-10-30] MEDS ORDERED: METHYLPREDNISOLONE 125 MG INJ ONE (23:08)
[2018-10-30] MEDS ORDERED: FAMOTIDINE 20 MG/2 ML VIAL IV ONE (23:09)
[2018-10-30] MEDS ORDERED: DIPHENHYDRAMINE 50 MG/ML VIAL ONE (23:09)
--- NOTE | 2018-10-31 00:09 | ER ---
Nurse's Notes [facility] Name: William Umaña Age: 28 yrs Sex: Female : 1990 Arrival Date: 10/30/2018 Time: 22:13 Bed 24 Private MD: Diagnosis: Allergic Reaction Presentation: 10/30 22:20 Presenting complaint: Patient states: I had a HIDA scan this morning at 9am. Then this ed1 afternoon I started feeling itchy all over and having sharp pains in my sides. Transition of care: patient was not received from another setting of care. Onset: The symptoms/episode began/occurred gradually, today. Anaphylaxis evaluation, the patient reports or I have noted the following symptoms which indicate a significant risk of anaphylaxis: nausea, vomiting, and/or diarrhea urticaria. Onset of symptoms was October 30, 2018. Risk Assessment: Do you want to hurt yourself or someone else? Patient reports no desire to harm self or others. Initial Sepsis Screen: Does the patient meet any 2 criteria? No. Patient's initial sepsis screen is negative. Does the patient have a suspected source of infection? No. Patient's initial sepsis screen is negative. Care prior to arrival: Medication(s) given: Aerius 5mg PO X1. 22:20 Method Of Arrival: Ambulatory ed1 22:20 Acuity: SOLA 4 ed1 Triage Assessment: 22:26 General: Appears in no apparent distress. Behavior is calm, cooperative. Pain: Denies ed1 pain. EENT: No signs and/or symptoms were reported regarding the EENT system. Neuro: Level of Consciousness is awake, alert, obeys commands, Oriented to person, place, time, situation. Cardiovascular: Denies chest pain, Heart tones S1 S2 present Rhythm is regular. Respiratory: Airway is patent Respiratory effort is even, unlabored, Respiratory pattern is regular, symmetrical, Breath sounds are clear bilaterally. Denies cough, shortness of breath. GI: Abdomen is non-distended, Bowel sounds present X 4 quads. Reports nausea, Patient currently denies diarrhea, vomiting. : No signs and/or symptoms were reported regarding the genitourinary system. Derm: Skin is intact, is healthy with good turgor, Skin is dry, Skin is normal, Skin temperature is warm Rash noted that is urticaria, on chest and right arm. Musculoskeletal: Circulation, motion, and sensation intact. Range of motion: intact in all extremities. 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 Patient has never been vaccinated. - Social history:: Smoking status: Patient/guardian denies using tobacco, never smoked. - Ebola Screening: : Patient negative for fever greater than or equal to 101.5 degrees Fahrenheit, and additional compatible Ebola Virus Disease symptoms Patient denies exposure to infectious person Patient denies travel to an Ebola-affected area in the 21 days before illness onset No symptoms or risks identified at this time. Screenin:28 Abuse screen: Denies threats or abuse. Denies injuries from another. Nutritional ed1 screening: No deficits noted. Tuberculosis screening: No symptoms or risk factors identified. Fall Risk None identified. Assessment: 22:28 General: See triage assessment. Respiratory: Airway is patent Respiratory effort is ed1 even, unlabored, Respiratory pattern is regular, symmetrical, Breath sounds are clear bilaterally. 23:08 Reassessment: Pt reports numbness and tingling to left arm. Pt states "I feel like I am ed1 going to pass out. I think I need my heart and everything checked.". 10/31 00:21 Reassessment: Patient appears in no apparent distress at this time. Patient and/or ed1 family updated on plan of care and expected duration. Pain level reassessed. Patient is alert, oriented x 3, equal unlabored respirations, skin warm/dry/pink. Patient states feeling better. Patient states symptoms have improved. Vital Signs: 10/30 22:26 BP 125 / 72; Pulse 74; Resp 18; Temp 98.0; Pulse Ox 100% on R/A; Weight 71.67 kg; ed1 Height 5 ft. 8 in. (172.72 cm); Pain 0/10; 23:44 BP 126 / 77; Pulse 79; Resp 16; Pulse Ox 100% ; lt1 10/31 00:21 BP 103 / 67; Pulse 85; Resp 16; Pulse Ox 100% on R/A; Pain 0/10; ed1 10/30 22:26 Body Mass Index 24.02 (71.67 kg, 172.72 cm) ed1 ED Course: 10/30 22:13 Patient arrived in ED. es 22:16 Dawood Harley PA is PHCP. jr8 22:16 Conrad Schneider MD is Attending Physician. jr8 22:20 Natasha Ceja RN is Primary Nurse. ed1 22:22 Triage completed. ed1 22:26 Arm band placed on. ed1 22:28 Patient has correct armband on for positive identification. Placed in gown. Bed in low ed1 position. Call light in reach. Side rails up X 1. Adult w/ patient. Pulse ox on. NIBP on. 23:08 Inserted saline lock: 22 gauge in right antecubital area, using aseptic technique. ed1 10/31 00:37 No provider procedures requiring assistance completed. IV discontinued, intact, ed1 bleeding controlled, No redness/swelling at site. Pressure dressing applied. Administered Medications: 10/30 23:07 Drug: SOLU-Medrol 125 mg Route: IVP; Site: right antecubital; ed1 10/31 00:08 Follow up: Response: No adverse reaction; Marked relief of symptoms ed1 10/30 23:07 Drug: Pepcid 20 mg Route: IVP; Site: right antecubital; ed1 10/31 00:08 Follow up: Response: No adverse reaction; Marked relief of symptoms ed1 00:08 Drug: Benadryl 25 mg Route: IVP; Site: right antecubital; ed1 00:22 Follow up: Response: No adverse reaction; Marked relief of symptoms ed1 Outcome: 00:08 Discharge ordered by . jr8 00:37 Discharged to home ambulatory, with family. ed1 00:37 Condition: good 00:37 Discharge instructions given to patient, Instructed on discharge instructions, follow up and referral plans. medication usage, Demonstrated understanding of instructions, follow-up care, medications, Prescriptions given X 1. 00:37 Patient left the ED. ed1 Signatures: Mily Watts Erika, RN RN ed1 Dawood Harley PA PA jr8 Dee Young [facility]
--- NOTE | 2018-10-31 00:10 | EDPHYS ---
Physician Documentation [facility] Name: William Umaña Age: 28 yrs Sex: Female : 1990 Arrival Date: 10/30/2018 Time: 22:13 Bed 24 Private MD: ED Physician Conrad Schneider HPI: 10/31 00:05 This 28 yrs old Female presents to ER via Ambulatory with complaints of jr8 Allergic Reaction. 00:05 The patient presents with itching, rash, redness of skin. Onset: The symptoms/episode jr8 began/occurred acutely, today. Associated signs and symptoms: The patient has no apparent associated signs or symptoms. Possible causes: Severity of symptoms: At their worst the symptoms were mild in the emergency department the symptoms are unchanged. The patient has not experienced similar symptoms in the past. The patient has not recently seen a physician. Patient had HIDA scan today. Was fine during procedure but a while after started to have rash along with itching and burning of face, scalp, legs, and arms . 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 Patient has never been vaccinated. - Social history:: Smoking status: Patient/guardian denies using tobacco, never smoked. - Ebola Screening: : Patient negative for fever greater than or equal to 101.5 degrees Fahrenheit, and additional compatible Ebola Virus Disease symptoms Patient denies exposure to infectious person Patient denies travel to an Ebola-affected area in the 21 days before illness onset No symptoms or risks identified at this time. ROS: 10/31 00:05 Eyes: Negative for injury, pain, redness, and discharge, ENT: Negative for injury, jr8 pain, and discharge, Neck: Negative for injury, pain, and swelling, Cardiovascular: Negative for chest pain, palpitations, and edema, Respiratory: Negative for shortness of breath, cough, wheezing, and pleuritic chest pain, Abdomen/GI: Negative for abdominal pain, nausea, vomiting, diarrhea, and constipation, Back: Negative for injury and pain, MS/Extremity: Negative for injury and deformity, Neuro: Negative for headache, weakness, numbness, tingling, and seizure. Skin: Positive for erythema, rash. Exam: 00:05 Eyes: Pupils equal round and reactive to light, extra-ocular motions intact. Lids and jr8 lashes normal. Conjunctiva and sclera are non-icteric and not injected. Cornea within normal limits. Periorbital areas with no swelling, redness, or edema. ENT: Nares patent. No nasal discharge, no septal abnormalities noted. Tympanic membranes are normal and external auditory canals are clear. Oropharynx with no redness, swelling, or masses, exudates, or evidence of obstruction, uvula midline. Mucous membranes moist. Neck: Trachea midline, no thyromegaly or masses palpated, and no cervical lymphadenopathy. Supple, full range of motion without nuchal rigidity, or vertebral point tenderness. No Meningismus. Cardiovascular: Regular rate and rhythm with a normal S1 and S2. No gallops, murmurs, or rubs. Normal PMI, no JVD. No pulse deficits. Respiratory: Lungs have equal breath sounds bilaterally, clear to auscultation and percussion. No rales, rhonchi or wheezes noted. No increased work of breathing, no retractions or nasal flaring. Abdomen/GI: Soft, non-tender, with normal bowel sounds. No distension or tympany. No guarding or rebound. No evidence of tenderness throughout. Back: No spinal tenderness. No costovertebral tenderness. Full range of motion. MS/ Extremity: Pulses equal, no cyanosis. Neurovascular intact. Full, normal range of motion. Neuro: Awake and alert, GCS 15, oriented to person, place, time, and situation. Cranial nerves II-XII grossly intact. Motor strength 5/5 in all extremities. Sensory grossly intact. Cerebellar exam normal. Normal gait. 00:05 Skin: Mild erythema to right arm and to anterior chest and cheeks. No other rashes noted . Vital Signs: 10/30 22:26 BP 125 / 72; Pulse 74; Resp 18; Temp 98.0; Pulse Ox 100% on R/A; Weight 71.67 kg; ed1 Height 5 ft. 8 in. (172.72 cm); Pain 0/10; 23:44 BP 126 / 77; Pulse 79; Resp 16; Pulse Ox 100% ; lt1 10/31 00:21 BP 103 / 67; Pulse 85; Resp 16; Pulse Ox 100% on R/A; Pain 0/10; ed1 10/30 22:26 Body Mass Index 24.02 (71.67 kg, 172.72 cm) ed1 MDM: 10/30 22:16 Patient medically screened. jr8 10/31 00:05 Data reviewed: vital signs, nurses notes, and as a result, I will discharge patient. jr8 Data interpreted: Pulse oximetry: on room air is 100 %. Interpretation: normal. Counseling: I had a detailed discussion with the patient and/or guardian regarding: the historical points, exam findings, and any diagnostic results supporting the discharge/admit diagnosis, the need for outpatient follow up, a family practitioner, to return to the emergency department if symptoms worsen or persist or if there are any questions or concerns that arise at home. Response to treatment: the patient's symptoms have markedly improved after treatment, Rash gone . 10/30 22:50 Order name: IV; Complete Time: 23:08 jr8 10/31 00:08 Order name: EKG - Nurse/Tech; Complete Time: jr8 Administered Medications: 10/30 23:07 Drug: SOLU-Medrol 125 mg Route: IVP; Site: right antecubital; ed1 10/31 00:08 Follow up: Response: No adverse reaction; Marked relief of symptoms ed1 10/30 23:07 Drug: Pepcid 20 mg Route: IVP; Site: right antecubital; ed1 10/31 00:08 Follow up: Response: No adverse reaction; Marked relief of symptoms ed1 00:08 Drug: Benadryl 25 mg Route: IVP; Site: right antecubital; ed1 00:22 Follow up: Response: No adverse reaction; Marked relief of symptoms ed1 Disposition: 07:09 Co-signature as Attending Physician, Conrad Schneider MD I agree with the assessment and tw4 plan of care. Disposition: 10/31/18 00:08 Discharged to Home. Impression: Allergic Reaction . - Condition is Stable. - Discharge Instructions: Anaphylactic Reaction, Adult. - Prescriptions for Prednisone 20 mg Oral Tablet - take 1 tablet by ORAL route once daily for 5 days; 5 tablet. - Medication Reconciliation Form, Thank You Letter, Antibiotic Education, Prescription Opioid Use form. - Follow up: Private Physician; When: 2 - 3 days; Reason: Recheck today's complaints, Continuance of care, Re-evaluation by your physician. - Problem is new. - Symptoms have improved. Signatures: Natasha Ceja RN RN ed1 Dawood Harley PA PA jr8 Conrad Schneider MD MD tw4 Corrections: (The following items were deleted from the chart) 00:37 00:08 10/31/2018 00:08 Discharged to Home. Impression: Allergic Reaction . Condition is ed1 Stable. Forms are Medication Reconciliation Form, Thank You Letter, Antibiotic Education, Prescription Opioid Use. Follow up: Private Physician; When: 2 - 3 days; Reason: Recheck today's complaints, Continuance of care, Re-evaluation by your physician. Problem is new. Symptoms have improved. jr8
--- NOTE | 2018-10-31 09:37 | EKG ---
Test Date: 2018-10-31 Test Time: 00:13:27 Manager Property: MEASUREMENT RESULTS: Intervals: Rate: 75 IN: 168 QRSD: 86 QT: 392 QTc: 437 [place]: P: 68 IN: 168 QRS: 48 T: 57 INTERPRETIVE STATEMENTS: Normal sinus rhythm Possible Anterior infarct, age undetermined Abnormal ECG Compared to ECG 12/08/2017 05:06:20 Myocardial infarct finding now present Electronically Signed On 10-31-18 09:36:44 CDT by Mark Helm
== END 2018-10-31 00:37 | disposition home or self-care (01) ==
LOC: ER 22:08
DX: R21 Rash and other nonspecific skin eruption (principal); E06.3 Autoimmune thyroiditis; Z88.2 Allergy status to sulfonamides
CPT/HCPCS: 93005; 96374; 96375; 99284; J2930